=== PATIENT | male | born 1995 | race Two or more races ===

== ENCOUNTER 2020-05-01 23:47 | Emergency (ER) | payer OTHER ==
[~2020-05-01] VITALS: Ht 175.3 cm; Wt 52.2 kg
[2020-05-01] MEDS ORDERED: LIDOCAINE 2% 50 ML MDV IJ ONE (23:56)
--- NOTE | 2020-05-01 23:57 | NUR ---
PT AAOX4. AMBULATORY WITH STEADY GAIT. BIB [employer] FOR OKAY TO BOOK. PT C/O L INDEX FINGER BLOOD BLISTER X2 DAYS. AWAITING MD FOR EVAL AND ORDERS.
[2020-05-02] MEDS ORDERED: LIDOCAINE 2% 20 ML MDV TP ONE
[2020-05-02] MEDS ORDERED: TDAP [DIPH/PERTUSSIS/TET] 0.5 ML VIAL IM ONE ×2 (00:03→00:30)
--- NOTE | 2020-05-02 00:07 | NUR ---
EMT AT BEDSIDE WITH
[2020-05-02] MEDS ORDERED: CEPHALEXIN MONOHYDRATE 500 MG CAPSULE PO ONE ×2 (00:27)
[2020-05-02 00:48] VITALS: BP 124/84
--- NOTE | 2020-05-02 00:48 | NUR ---
Patient discharged to [facility] in stable condition. Written and verbal after care instructions given. Patient verbalizes understanding of instruction.pt ambulatory with a steady gait
== END 2020-05-02 00:48 | disposition home or self-care (01) ==
LOC: ER 23:47
DX: S60.022A Contusion of left index finger without damage to nail, initial encounter (principal); L03.012 Cellulitis of left finger; X58.XXXA Exposure to other specified factors, initial encounter; Y93.89 Activity, other specified; Y92.89 Other specified places as the place of occurrence of the external cause; Y99.8 Other external cause status
CPT/HCPCS: 10060; 90471; 90715; 99283; J3490